=== PATIENT | female | born 1930 | race Caucasian/White ===

== ENCOUNTER 2020-06-10 13:36 | Emergency (ER) | payer MEDICARE, BC ==
[~2020-06-10] VITALS: Ht 149.9 cm; Wt 59.1 kg
--- NOTE | 2020-06-10 14:10 | NUR ---
SPOKE TO DR. LEBRON ABOUT LABS, HE WANTS TO PLACE HIS OWN ORDERS. STOPPED LABS. PT FELL BC SHE TRIPPED NOT FROM DIZZY, ETC. PT NOT ON BLOOD THINNER.
--- NOTE | 2020-06-10 14:23 | NUR ---
PT DOES NOT WANT PAIN MEDICATION.
[2020-06-10] MEDS ORDERED: acetaminophen 325mg tablet PO ONE (14:35)
[2020-06-10] MEDS ORDERED: AMOX-117 PO (15:56)
[2020-06-10 17:03] VITALS: BP 128/76
== END 2020-06-10 17:05 | disposition home or self-care (01) ==
LOC: ER 13:37
DX: S06.0X0A Concussion without loss of consciousness, initial encounter (principal); S02.2XXA Fracture of nasal bones, initial encounter for closed fracture; S29.011A Strain of muscle and tendon of front wall of thorax, initial encounter; S00.83XA Contusion of other part of head, initial encounter; M54.2 Cervicalgia; Z79.899 Other long term (current) drug therapy; W10.1XXA Fall (on)(from) sidewalk curb, initial encounter; Y93.89 Activity, other specified; Y92.89 Other specified places as the place of occurrence of the external cause; Y99.8 Other external cause status
CPT/HCPCS: 70450; 70486; 71045; 72125; 93005; 99285